=== PATIENT | female | born 1980 | race African-American/Black ===

== ENCOUNTER 2017-01-31 12:10 | Emergency (ER) | payer SELFPAY ==
--- NOTE | ~2017-01-31 | CR63 ---
[facility] A Service of [facility] / [facility] RADIOLOGY TEXT RESULTS PATIENT: FRANCISCO BERG LOCATION: SED : 76 UNIT #: [id number] AGE: [address]: COY LEA SEX: F ORDER DR: [id number] [place] [id number] E MR#: [id number] #: [id number] NAME: FRANCISCO BERG : 1980 SEX: F STUDY DATE/TIME: 01/31/2017 12:34 UNIT: SED ROOM: STUDY DESCRIPTION: CR Chest 2 View Attending Physician: Coy Lea Aprn Referring Physician: Coy Lea Aprn Primary Care Physician: No Primary Care Physician MEDICAL IMAGING REPORT This report is preliminary unless electronic signature is present. EXAM Chest x-ray HISTORY Cough, fever and chills for the past 2 days. TECHNIQUE 2 views of the chest were obtained. FINDINGS PA and lateral examination of the chest upright shows a good expansion of the parenchyma with a normal distribution of the pulmonary vascularity. There is no indication of congestion, effusion, infiltrate, tumor, or nodular density. The pleural reflections and diaphragmatic contours are normal. The cardiac silhouette and mediastinal anatomy is within normal limits. IMPRESSION Normal chest. Dictated by... Sohail Morris M.D. THIS IS AN ELECTRONICALLY VERIFIED REPORT Sohail Morris M.D. at 01/31/2017 6:02 PM RLF/cory TD: 01/31/2017 14:18 JOB #: [id number] MEDICAL IMAGING REPORT [facility] A Service of [facility] / [facility] RADIOLOGY TEXT RESULTS PATIENT: FRANCISCO BERG LOCATION: SED : 76 UNIT #: [id number] AGE: [address]: COY LEA SEX: F ORDER DR: Page 1 of 1
[~2017-01-31 12:10] MED LIST: BENTYL10 MG PO; OMEPRAZOLE40 MG PO; PHENERGAN25 MG PO
[2017-01-31 12:23] LABS: INFLUENZA A NEG (NEG); INFLUENZA B POS (NEG)
== END 2017-01-31 13:26 | disposition home or self-care (01) ==
LOC: SED 12:10
PROVIDERS: Nurse Practitioner Family
DX: J10.1 Influenza due to other identified influenza virus with other respiratory manifestations (principal); I10 Essential (primary) hypertension; Z90.49 Acquired absence of other specified parts of digestive tract
CPT/HCPCS: 71020; 87804; 99283